=== PATIENT | male | born 1955 | race Caucasian/White ===

== ENCOUNTER → 2017-07-25 | Outpatient (CLI) | payer BC ==
[~2017-07-25] MED LIST: ALB17R INH; ASCO250T85 PO; BACDS PO; DOC100 PO; FLAX100042 PO; LOR5 PO; METH1TAB65 PO; MULT-1319 PO; PER PO; PHENA200 PO; TAM4 PO; VIT B COMP
--- NOTE | 2017-07-25 14:48 | RADIOLOGY IMAGING REPORT ---
[place] [facility] [place] NAME: Courtney Tracey : 1955 MR: [id number] V: [id number] EXAM DATE: ORDERING PHYSICIAN: ADILENE STEPHENSON TECHNOLOGIST: Location: [facility] [place] Patient: Courtney Tracey : 1955 Visit/Account:[id number] Date of Sevice: 07/25/2017 ABDOMEN PELVIS ESWL CYSTO W/O HISTORY: History of kidney stones TECHNIQUE: Axial images acquired through the abdomen/pelvis. Coronal and sagittal reformatting also performed. No IV contrast administered. Dose Lowering Technique One of the following dose optimization techniques was utilized in the performance of this exam: Autom ated exposure control; adjustment of the mA and/or kV according to the patient's size; or use of an i terative reconstruction technique. Specific details can be referenced in the facility's radiology C T exam operational policy. Solid viscous organs not ideally evaluated due to lack of intravenous contrast COMPARISON: March 03, 2014 FINDINGS: Visualized lung bases: Mild linear scarring in the lung bases Hepatobiliary: Negative. Spleen: Negative. Adrenals: Negative. Pancreas: Negative. Kidneys ureters and bladder: There is 1 to 2 mm calculus upper pole calyx of the right kidney in add ition to a separate 1 mm calculus. There are two separate 1 mm calculi in the lower pole calyces of the right kidney. There is a 1 mm calculus in the interpolar region of the left kidney and a 3 mm calculus in an adjace nt 1 mm calculus also interpolar region of the left kidney. There is no evidence of hydronephrosis o r hydroureter. Genitalia: Prostate gland is prominent contains coarse calcifications and impinges upon the floor th e urinary bladder GI: There is a 1.2 x 1 cm x 1 cm soft tissue nodule that appears to be connected to the distalmost p ortion of the faintly visualized appendix. This is relatively unchanged when compared to the prior s tudy. No surrounding inflammatory changes identified Vessels/spaces/nodes: Negative. Bones/soft tissues: There are moderate spondylotic changes lower lumbar spine slightly more advanced when compared the prior study. Small umbilical hernia containing fat Additional findings: None pertinent. IMPRESSION: Nonobstructing calculi seen in both renal collecting systems Prominent prostate gland Is a 1.2 x 1 x 1 cm soft tissue nodule that appears to be connected to the distalmost portion of the faintly visualized appendix. This is relatively unchanged when compared the prior study apparently a stable finding. Report Dictated By: Madhuri Ram MD at 07/25/2017 2:29 PM Report E-Signed By: Madhuri Ram MD at 07/25/2017 2:43 PM WSN:[id number]
== END ==
LOC: RAD 01:14
PROVIDERS: ATTEND Urology
DX: R91.8 Other nonspecific abnormal finding of lung field (principal); N20.0 Calculus of kidney; N42.89 Other specified disorders of prostate; K42.9 Umbilical hernia without obstruction or gangrene
CPT/HCPCS: 74176

== ENCOUNTER → 2017-11-06 | Outpatient (CLI) | payer BC ==
--- NOTE | 2017-11-06 08:55 | RADIOLOGY IMAGING REPORT ---
FACILITY: [facility] PATIENT NAME: Courtney Tracey : 1955 MR: [id number] V: [id number] EXAM DATE: ORDERING PHYSICIAN: DENITA BOYER TECHNOLOGIST: Location: [facility] Patient: Courtney Tracey : 1955 Visit/Account:[id number] Date of Sevice: 11/06/2017 SHOULDER LEFT W/O CONTRAST COMPARISON: None. HISTORY: Left shoulder pain. TECHNIQUE: Noncontrast multiplanar MRI of the left shoulder utilizing T1 weighted and fluid sensitiv e sequences. CONTRAST: None. FINDINGS: ROTATOR CUFF: There is a partial-thickness undersurface tear of the anterior leading edge of the sup raspinatus tendon at the insertion measuring 8 mm in AP diameter on series 5 image 19. A 4 mm proxima l to its greater tubercle insertion, there is an additional partial-thickness undersurface tear of th e supraspinatus tendon, for example series 4 image 10 which essentially involves the entire AP width of the tendon. There is intermediate signal in the supraspinatus and infraspinatus tendon tendons con sistent with mild tendinosis. There is mild tendinosis of the subscapularis tendon insertion without well-defined tear. There is intermediate signal and mild fluid signal in the teres minor tendon proxi mal to the insertion consistent with a partial-thickness interstitial tear. There is no rotator cuff muscle atrophy or edema. BICEPS: The long head of biceps tendon is normal in caliber and signal. The extra-articular segment is normally positioned within the intertubercular sulcus. FLUID/BURSA: Moderate size glenohumeral effusion. No evidence of bursitis. There is a large loose bon e fragment anteriorly within the subscapularis recess measuring about 2.6 x 3.9 x 1.2 cm (best seen o n series 6 image 3). More amorphous filling defects elsewhere in the joint are most consistent with s ynovitis. GLENOHUMERAL JOINT: Exuberant, bulky spurring along the caudal margin of the glenohumeral joint, wit h moderate spurring along its superior margin consistent with advanced osteoarthritis. The size of th e inferior humeral head spurs with almost certainly cause limited range of motion. There are signal c hanges consistent with subchondral sclerosis on both sides of the glenohumeral joint and there is mil d flattening of the humeral head consistent with chronic degenerative remodeling. The presence of a j oint effusion allows some labral assessment and there is almost circumferential degenerative tearing of the labrum, with a tear in the posterior superior labrum beginning just posterior to the biceps an chor extending through the entire posterior labrum which is contiguous with diffuse degenerative tear ing of the inferior labrum from anterior to posterior, which is partially detached and displaced infe riorly. AC JOINT: Minimal undersurface spurring of the distal clavicle at the AC joint. Mild cranial sided spurring of the acromion process at the AC joint. Type I acromion without subacromial spur or os acro miale. BONES: Degenerative changes as above. Normal alignment. There is no Hill-Sachs deformity or osseous Bankart lesion. OTHER: Negative. IMPRESSION: 1. Advanced left glenohumeral osteoarthritis with bulky spurring inferiorly which would probably cau se limited range of motion. Nearly circumferential degenerative tearing of the labrum. 2. Mild AC joint osteoarthritis. 3. Partial-thickness undersurface tears in the supraspinatus tendon, both at the insertion anteriorl y, and throughout the distal tendon just proximal to the insertion. 4. Partial-thickness interstitial tear, teres minor tendon. 5. Diffuse rotator cuff tendinosis. 6. Moderate sized glenohumeral effusion with mild synovitis and a 3.9 cm loose bone fragment in the subscapularis recess anteriorly. Report Dictated By: Yobani Skelton at 11/06/2017 8:34 AM Report E-Signed By: Yobani Skelton at 11/06/2017 8:51 AM WSN:[id number]
== END ==
LOC: MRI 01:12
PROVIDERS: ATTEND Nurse Practitioner Psychiatric/Mental Health
DX: M19.012 Primary osteoarthritis, left shoulder (principal); M75.102 Unspecified rotator cuff tear or rupture of left shoulder, not specified as traumatic; M25.412 Effusion, left shoulder